=== PATIENT | male | born 1985 ===

== ENCOUNTER → 2024-07-12 10:48 | Outpatient (REF) | payer OTHER, SELFPAY | LOC: MRI 3T 10:48 | PROVIDERS: ATTENDING PHYSICIAN Physician Assistant; FAMILY PHYSICIAN Family Medicine | DX: E22.1 Hyperprolactinemia (principal) | CPT/HCPCS: 70553; A9575 ==

== ENCOUNTER 2024-07-29 18:52 | Emergency (ER) | payer SELFPAY ==
[2024-07-29 19:01] VITALS: BP 149/73
[2024-07-29] MEDS: ADACEL 0.5 ML IM (20:39)
[2024-07-29] MEDS: AUGMENTIN 875 MG/125 MG 1 TABLET PO (20:39)
--- NOTE | 2024-07-29 20:41 | ED.SKININJ ---
HPI-Injury
General
Chief Complaint: Bite
Source: patient
Exam Limitations: none
Time Seen by Provider: 07/29/24 20:29
History of Present Illness-Injury
Initial Injury comments:
38-year-old male with dog bite to left calf he sustained today. 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 He has been on the job. Dogs vaccines are believed to be up-to-date. Last vaccine for the patient unknown. No other complaints
Past History
Past History
ED Past Medical History: None
ED Past Surgical History: None
Social History
Tobacco: Non-smoker
Alcohol: None
Phy Exam
Physical Exam
Physical Exam:
General: Well-appearing male no acute respiratory distress
Skin: 2 cm superficial laceration/dog bite well-approximated to left lateral calf no surrounding swelling or ecchymosis no bleeding
Course
Orders/Labs/Results
Orders:
Orders
07/29/24 20:35
Amoxicillin 875 mg/Clav 125 mg [Augmentin 875 mg/125 mg] 1 tablet PO NOW STA
Tetanus/Diphth/Acelpertussis [Adacel] 0.5 ml IM .ONCE ONE
Vital Signs
Initial and Last Documented VS:
Initial Vital Signs
Temp Pulse Resp BP Pulse Ox
97.7 F 65 19 149/73 96
07/29/24 19:01 07/29/24 19:01 07/29/24 19:01 07/29/24 19:01 07/29/24 19:01
Last Documented Vital Signs
Temp Pulse Resp BP Pulse Ox
97.7 F 65 19 149/73 96
07/29/24 19:01 07/29/24 19:01 07/29/24 19:01 07/29/24 19:01 07/29/24 19:01
MDM/Problems Addressed
Differential Diagnosis Includes:
Superficial dog bite left lateral calf. No surrounding swelling or ecchymosis. Update tetanus started Augmentin no indication for sutures. Stable for discharge
*Critical Care Note
Total Time (30-74mins, 75-104mins- exclusive of procedures): Not Applicable
ED Attending Note
-
Portions of this chart may have been created with voice recognition software.� Occasional wrong word or��sound alike� substitutions may have occurred due to the inherent limitations of voice recognition software.
Discharge Plan
Departure
Patient Disposition: Home (Routine Discharge)
Date of Disposition: 07/29/24
Time of Disposition: 20:42
Patient with high blood pressure during this ER visit?: No
Discharge Problem:
Dog bite
Instructions: Animal Bites (DC)
Prescriptions:
New
amoxicillin-pot clavulanate 875-125 mg tablet
1 tab PO BID Qty: 14 0RF
No Action
diclofenac sodium 25 MG tablet,delayed release (DR/EC)
25 mg PO QID PRN (Reason: moderate pain) Qty: 20 0RF
Referrals:
Juan Rosas DO [Family Provider, Family Practice]
Activity Restrictions/Additional Instructions:
Take antibiotics as directed. Return if worse otherwise follow-up with your doctor
Interventions
Interventions:
*Risk Screen - Suicide Last Done: 07/29/24 18:56
*General Assessment Last Done: 07/29/24 18:56
*Neglect/Abuse Screening Last Done: 07/29/24 18:56
*ED- Fall Risk Assessment Last Done: 07/29/24 18:56
*ED COVID-19 Vaccine History Last Done: 07/29/24 18:56
ED-Skin Assessment Last Done: 07/29/24 18:56
Discharge Date and Time
Print Language: MONGOLIAN
== END 2024-07-29 20:54 | disposition home or self-care (01) ==
LOC: EMR 18:52
PROVIDERS: EMERGENCY PHYSICIAN Emergency Medicine; FAMILY PHYSICIAN Family Medicine
DX: S81.852A Open bite, left lower leg, initial encounter (principal); W54.0XXA Bitten by dog, initial encounter; Z23 Encounter for immunization
CPT/HCPCS: 99282; 90471; 90715